=== PATIENT | female | born 1960 | race Caucasian/White ===

== ENCOUNTER 2016-03-13 07:24 | Day surgery (SDC) | payer MEDICARE ==
[2016-03-10 12:02] LABS: BASOPHILS 0.8 % (0.0-2.0); EOSINOPHILS 2.4 % (0-7); HEMATOCRIT 39.8 % (36.0-48.0); HEMOGLOBIN 12.8 g/dL (12-16); LYMPHOCYTES 29.2 % (15-50); MCH 29.2 pg (26.0-34.0); MCHC 32.2 g/dL (31.0-37.0); MCV 90.9 fL (80.0-100.0); MEAN PLATELET VOLUME 9.8 fL (7.4-10.4); NEUTROPHILS 61.6 % (40-80); PLATELET COUNT 242 10x3/uL (130-400); RBC 4.38 10x6/uL (4.00-5.40); RDW 13.2 % (11.5-14.5)
[2016-03-10 12:11] LABS: ANION GAP 13.2 mmol/L (8-16); CALCIUM 9.7 mg/dL (8.5-10.1); CARBON DIOXIDE 28.6 mmol/L (21.0-32.0); CREATININE - SERUM 0.9 mg/dL (0.6-1.3); POTASSIUM - SERUM 3.8 mmol/L (3.5-5.1)
[~2016-03-13] VITALS: Ht 144.8 cm; Wt 49.0 kg
[~2016-03-13 07:24] MED LIST: CELEXA10 MG PO; HYDROXYZINE HCL10 MG PO
[2016-03-13 08:03] VITALS: BP 152/90; Ht 144.8 cm; Wt 49.0 kg
[2016-03-13 08:40] LABS: HCG URINE NEGATIVE (NEGATIVE)
--- NOTE | 2016-03-13 08:43 | NUR ---
0800 PT STATES TOOK AM MEDS WITH 2-3 OZ. OF COLA THIS AM @ 0545. N. JETT Albarran/OR NOTIFIED. JETT Albarran NOTIFIED DR. OLMEDO OF THIS AM'S PO INTAKE. STATES HE SAID TO GIVE PREOP MEDS NOW & SURGERY WILL BE @ 0900. [place] MASTERS R.N. 0822 JONATHAN, ELIEZER, & ALFREDO GIVEN PO WITH DIFFICULTY SWALLOWING. TYLENOL HELD BECAUSE OF PT.'S SWALLOWING PROBLEMS. [place] MASTERS R.N.
[2016-03-13 09:44] LABS: HCG URINE NEGATIVE (NEGATIVE)
--- NOTE | 2016-03-13 11:29 | NUR ---
SISTER ARRIVES TO PACU BEDSIDE
--- NOTE | 2016-03-13 13:41 | NUR ---
1315--PT VOIDS WITHOUT DIFFICULTY, IV DC'D. PT UP DRESSING AT THIS TIME. LUISA KELLY 0105--DISCHARGE INSTRUCTIONS GIVEN, PT VERBALIZES UNDERSTANDING. PT OFF UNIT VIA WC. LUISA KELLY
--- NOTE | 2016-03-14 17:49 | OP ---
PATIENT NAME: CHAPINCITO HICKEY MEDICAL RECORD: [id number] :60 LOCATION:.[facility] ADMISSION DATE: SURGEON: IGNACIA HDZ MD DATE OF OPERATION: 03/13/2016 PREOPERATIVE DIAGNOSES: 1. Abnormal uterine bleeding. 2. Thickened endometrial stripe per ultrasound. 3. Mental retardation/intolerance of pelvic exam. POSTOPERATIVE DIAGNOSES: 1. Abnormal uterine bleeding. 2. Thickened endometrial stripe per ultrasound. 3. Mental retardation/intolerance of pelvic exam. 4. A 2-3 cm cervical polyp. SURGEON: Ignacia Hdz MD ANESTHESIA: Laryngeal mask anesthesia with Radha De Souza CRNA. PROCEDURES: 1. Hysteroscopy with dilation and curettage. 2. Cervical polypectomy. 3. Examination under anesthesia. FINDINGS: Virginal introitus was intact via the hymen. Introital opening approximately 4-5 mm diameter. A 2-3 cm polyp noted of the ectocervix. Uterus sounded 5cm. Fluffy appearing endometrial tissue noted. DESCRIPTION OF PROCEDURE: After informed consent was given, the patient was taken to the operating room, where laryngeal mask anesthesia was placed and found to be adequate. She was placed in a dorsal lithotomy position in [facility]. She was prepped and draped sterilely including a vaginal prep. A catheter was placed into the bladder and bladder drained with approximately 10 cc of clear urine return. A pediatric bivalve speculum was then placed into the vagina and the cervix was brought into view. A 2-3 cm irregular appearing cervical polyp was noted. The photographic evidence was taken of the polyp. The polyp was then grasped with a ring forceps and the ring forceps was placed, it was turned in a clockwise manner until the polyp released, it was then passed off the field as specimen. The cervix was then grasped anteriorly with a single-tooth tenaculum and attempt was made to sound the uterus, but the internal os was noted to be closed. The cervix was then gently opened with dilators. When it was opened sufficiently to place a sound, a sound was again attempted and placed and the uterus sounded to 5 cm. The cervix, we then continued dilating manually to 7 mm and a 5 mm hysteroscope was then introduced into the uterine cavity. A fluffy endometrial tissue was noted throughout; some bleeding was noted from the origin of the endocervical polyp. Targeted biopsies were taken within the endometrial cavity and the hysteroscope was removed. Sharp and suction curettage was then employed until a gritty texture was noted circumferentially within the endometrial cavity. The single-tooth tenaculum was removed and silver nitrate was used at the tenaculum sites with excellent hemostasis noted. The Bovie cautery was used of the endocervix at the origin of the polyp and excellent hemostasis was then noted. The bivalve speculum was removed. Two small lacerations were noted at 2 o'clock and 10 o'clock of the hymen and these were cauterized and excellent hemostasis was then noted. The OPERATIVE REPORT [id number] CHAPINCITO IHCKEY patient was returned to a supine position, awakened and taken into the recovery room in stable condition. The patient tolerated procedure well. COUNTS: Sponge, lap and instrument counts were reported correct times 2. ESTIMATED BLOOD LOSS: Minimal. URINE OUTPUT: 10 cc. SPECIMENS: 1. Cervical polyp. 2. Endometrial targeted biopsy. 3. Sharp endometrial curettings. 4. Suction endometrial curettings. TRANSINT:[id number] Voice Confirmation ID: [id number] DOCUMENT ID: [id number] IGNACIA HZD MD at 1749 CC: [id number] DICTATION DATE: 03/14/16 08 TRANSPORTATION DRIVER: 03/14/16 0835 [facility] 03/13/16 [id number] [place] [address]
== END 2016-03-13 13:35 | disposition home or self-care (01) ==
LOC: D.OPS 07:24 → D.PAN 09:00 → D.OPS 09:00
PROVIDERS: Specialist
DX: N84.1 Polyp of cervix uteri (principal); R93.8 Abnormal findings on diagnostic imaging of other specified body structures; F79 Unspecified intellectual disabilities

== ENCOUNTER → 2018-04-05 08:00 | Outpatient (CLI) | payer MEDICARE ==
[2016-03-13 08:03] VITALS: BMI 23.4
== END | disposition home or self-care (01) ==
LOC: D.MAMMO 08:00
DX: Z12.31 Encounter for screening mammogram for malignant neoplasm of breast (principal)

== ENCOUNTER → 2020-05-07 18:52 | Outpatient (CLI) | payer MEDICARE ==
[2016-03-13 08:03] VITALS: BMI 23.4
== END | disposition home or self-care (01) ==
LOC: D.MAMMO 04-23 13:15
PROVIDERS: ATTEND Family Medicine
DX: Z12.31 Encounter for screening mammogram for malignant neoplasm of breast (principal)